=== PATIENT | male | born 1975 | race Caucasian/White ===

== ENCOUNTER 2018-01-14 15:44 | Emergency (ER) | payer SELFPAY ==
--- NOTE | 2018-01-14 16:00 | ED Physician Documentation ---
Low Back Pain - HISTORIAN Historian: patient - HPI Stated Complaint: low back pain Chief Complaint: Low Back Pain/ Injury Additional Information: Patient presents to ED with a 10 day history of low back pain after falling out of the top bunk in alf. Patient states he was evaluated by the halfway nurse but was only given a wheel chair. He was released from halfway 2 days ago and is still experiencing pain. He was staying with his brother and could not get a ride to the hospital so he walked to the fire station and asked to be taken to the hospital in [place]. He was brought to [facility] instead. He denies loss of bowel or bladder control. 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 Onset: days ago (10) Duration: continues in ED Context: other (standing/sitting) Where: other (halfway) Severity: moderate Quality: sharp Associated Symptoms: denies: fever, incontinence, nausea, vomiting, problems urinating Worsened By:: upright position Relieved By: other (laying on side) - ROS CONST: no problems CVS/RESP: denies: chest pain, shortness of breath EYES/ENT: none MS/SKIN/LYMPH: none Neuro/Psych: none GI/: denies: abdominal pain - PAST HX Past History: denies: back injury Surgeries/Procedures: none Allergies/Adverse Reactions: Allergies Allergy/AdvReac Type Severity Reaction Status Date / Time Penicillins Allergy Verified 01/14/18 15:51 shellfish derived Allergy Verified 01/14/18 15:51 Home Medications: Ambulatory Orders Medication Instructions Recorded NK 01/14/18 - SOCIAL HX Smoking History: non-smoker Drug Use: methamphetamines - FAMILY HX Family History: none - VITAL SIGNS Vital Signs: Vital Signs Temp Pulse Resp BP Pulse Ox 98.2 F 101 H 19 152/94 99 01/14/18 15:54 01/14/18 15:54 01/14/18 15:54 01/14/18 15:54 01/14/18 15:54 - REVIEWED ASSESSMENTS Nursing Assessment Reviewed: Yes Vitals Reviewed: Yes Progress - Progress Progress: [address] Frank, [facility] at [place] for advice on L2 burst fracture. He recommends TLSO brace and follow up with his office on Tuesday or Tuesday. No heavy lifting. ED Results Lab/Radiology - Radiology Radiology Impressions: CT lumbar spine without contrast. History: Lower back pain after fall. Technique: Transaxial computed tomographic images of the lumbar spine were obtained without contrast according to standard protocol. Findings: There is a burst fracture involving the L2 vertebral body. There is approximately 25-50% loss of vertebral body height. Minimal 2mm retropulsion is identified. The remaining vertebral body heights and alignments are normal. The sacroiliac joints are normal. There is no paravertebral soft tissue swelling identified. Impression: 1. L2 burst fracture with 25-50% loss of vertebral body height and minimal retropulsion present. Findings discussed with Renae Moctezuma in the ER at 1629 hrs central standard time. Electronically signed on Jan 14, 2018 4:30:38 PM DIESEL POWER MECHANIC by: Manish Holland - Orders Orders: ED Orders Category Date Time Status CT LUMBAR SPINE WITHOUT CONTRAST [CT L-SPINE W/O Exams 01/14/18 Completed CONTRAST] Stat Low Back Pain/Injury - Physical Exam General Appearance: no acute distress, alert. No: c-collar FIELD AIDE, c-collar in ED, backboard FIELD AIDE, backboard in ED EENT: DELL Neck: non-tender, painless ROM Resp/CVS: chest non-tender, breath sounds nml, heart sounds nml Abdomen: non-tender Back: vertebral point-tendernes (L4-S1) Straight Leg Raising: Negative Left, Negative Right Neuro/Psych: oriented x3, motor nml, sensation nml Skin: warm/dry, normal color Extremities: non-tender, normal range of motion Discharge Clincal Impression: Closed burst fracture of lumbar vertebra Qualifiers: Encounter type: initial encounter Qualified Code(s): S32.001A - Stable burst fracture of unspecified lumbar vertebra, initial encounter for closed fracture Referrals: Kiley Pappas MD [Primary Care Provider] - 2 Days Additional Instructions: 1. NO heavy lifting. Do not lift more than 5 lbs 2. Follow up with [facility] [address] [place], [place] Call office first thing Tuesday morning for an appointment 3. Wear TLSO brace while sitting or standing. 4. Return to ED if pain becomes worse, numbness/tingling/weakness or you lose control of bowel or bladder. Condition: Stable Disposition: 01 HOME, SELF-CARE Decision to Admit: NO Date of Decison to Admit: 01/14/18 Decision Time: 17:06
--- NOTE | 2018-01-14 16:32 | Diagnostic Imaging Report ---
GIL MAGAÑA [facility] [address] [facility] [address] [place], [place]. [address] Report Submission Date: Jan 14, 2018 4:30:38 PM BASKET MACHINE OPERATOR Patient Study Name: YAEL ESPARZA Date: Jan 14, 2018 4:09:41 PM BASKET MACHINE OPERATOR Modality Type: CT\SR Gender: M Description: CT L-SPINE W/O CONTRAS : 79 Institution: [facility] Physician: GIL MAGAÑA CT lumbar spine without contrast. History: Lower back pain after fall. Technique: Transaxial computed tomographic images of the lumbar spine were obtained without contrast according to standard protocol. Findings: There is a burst fracture involving the L2 vertebral body. There is approximately 25-50% loss of vertebral body height. Minimal 2mm retropulsion is identified. The remaining vertebral body heights and alignments are normal. The sacroiliac joints are normal. There is no paravertebral soft tissue swelling identified. Impression: 1. L2 burst fracture with 25-50% loss of vertebral body height and minimal retropulsion present. Findings discussed with Gil Magaña in the ER at 1629 hrs central standard time. Electronically signed on Jan 14, 2018 4:30:38 PM BASKET MACHINE OPERATOR by: Manish CASTILLO
[2018-01-14] MEDS ORDERED: HYDROcodone /APAP 5/325 1 EACH TABLET PO ONE (17:20)
[2018-01-14 17:35] VITALS: BP 106/62
== END 2018-01-14 17:33 | disposition home or self-care (01) ==
LOC: ED 15:44
DX: S32.021A Stable burst fracture of second lumbar vertebra, initial encounter for closed fracture (principal); W06.XXXA Fall from bed, initial encounter; Y93.9 Activity, unspecified; Y92.143 Cell of prison as the place of occurrence of the external cause
CPT/HCPCS: 72131; 99283